=== PATIENT | male | born 1985 | race Caucasian/White ===

== ENCOUNTER 2023-09-04 22:01 | Emergency (ER) | payer BC, SELFPAY ==
[2023-09-04 22:05] VITALS: BP 152/102; BP 152/103; PULSE 73; RESP 14; TEMP 36.6; O2SAT 100; BMI 20.1
[2023-09-04] MEDS: Lidocaine 2% /Epi 1:100 (20ml) 20 ML VIAL INFILT (23:36)
[2023-09-04] MEDS: Clindamycin HCl 150 MG Capsule 300 MG PO (23:36)
--- NOTE | 2023-09-05 00:17 | EX.ED.DYSGE1 ---
HPI History of Present Illness Chief Complaint: Dental Informant: patient Narrative Narrative: Patient is a 38-year-old male with no reported significant past medical history. He states over the past few days he has had some pain and swelling noted to the right upper jaw. He states that there is no recent trauma he denies any difficulty breathing or swallowing. He states that today the pain seems to be more constant and has increased. With concern for infection he presents for evaluation. [facility] Medical History (Updated 09/05/23 @ 05:[address] Daryn Mott, ) Collapsed lung Home Medications clindamycin HCl 300 mg capsule 300 mg PO 4X/DAY 10 days #40 caps 09/05/23 [Rx Last Taken Unknown] Allergy/AdvReac Type Severity Reaction Status Date / Time No Known Allergies Allergy Verified 09/04/23 22:02 Family History (Updated 09/04/23 @ 23:05 by Kayleigh Martino) Father Hypertension Mother FH: kidney cancer Social History (Updated 09/04/23 @ 23:05 by Kayleigh Martino) household members: family housing: house Smoking Status: Current every day smoker tobacco type: cigarettes ROS ROS ED Constitutional Constitutional ED: Denies chills or fever(s) Eyes Eyes: Denies change in vision ENT ENT ED: Reports other Details: Positive dental pain ; Denies sore throat Cardiovascular Cardiovascular: Denies chest pain Respiratory/Chest Respiratory/Chest: Denies cough or dyspnea Gastrointestinal Gastrointestinal: Denies abdominal pain, diarrhea, nausea or vomiting Genitourinary Genitourinary ED: Denies dysuria Musculoskeletal Musculoskeletal: Denies myalgias or neck pain Integumentary Denies rash Neurologic Neurologic: Denies headache(s) Hematologic/Lymphatic Hematologic/Lymphatic: Denies easy bleeding or easy bruising EXAM Physical Exam Const Vital Signs: 09/04/23 22:05 09/04/23 22:05 09/04/23 23:06 Temperature 97.9 F Temperature Source Temporal Pulse Rate 73 73 Respiratory Rate 14 14 Respiratory Effort Normal Non-Labored Respiratory Pattern Normal Blood Pressure 152/103 H 152/102 H Blood Pressure Mean 119 118 Pulse Ox 100 100 Oxygen Delivery Method Room Air Room Air 09/05/23 00:24 Temperature 97.9 F Temperature Source Pulse Rate 73 Respiratory Rate 14 Respiratory Effort Respiratory Pattern Blood Pressure 152/102 H Blood Pressure Mean 118 Pulse Ox 100 Oxygen Delivery Method Positive well nourished and well developed General Appearance ED: well developed; Negative for pallor HEENT Reports moist mucous membranes HEENT Narrative: Patient has scattered dental caries with mild soft tissue swelling and erythema to the right upper gingiva most consistent with developing dental infection. There is no obvious dental abscess. No signs of ANUG. No brawny edema in the submental space to suggest Adolfo's angina. Eyes PERRL and EOMs intact bilaterally Neck supple Resp normal respiratory effort and clear to auscultation bilaterally Cardio regular rate and regular rhythm Rate: other Other Details: Heart is regular rate and rhythm without murmurs rubs or gallops GI normal to inspection, nondistended, normoactive bowel sounds, non-tender, non-distended and no masses Auscultation: normoactive bowel sounds Palpation: soft Extremity normal to inspection Neuro oriented x3, CN's II-XII intact bilaterally and no sensory deficits noted Sensorium / Orientation: alert Motor Exam: strength 5/5 throughout Psych mental status grossly normal Skin no rashes or lesions noted, no wounds and skin turgor normal General Skin Exam: Negative for jaundice or pallor MDM MDM MDM Narrative Medical decision making narrative: Patient presented to the ER hypertensive but otherwise with stable vitals. He reported increasing pain and swelling to the right upper jaw with no known injury. Differential diagnosis is for dental caries versus dental abscess versus Adolfo's angina versus ANUG. Patient does not have any physical exam findings to suggest ANUG and there is no brawny edema to suggest Adolfo's angina. Also there is no obvious abscess externally on exam going against need for incision and drainage. Therefore at this time his pain can be reduced with a dental block as documented below but as there is concern for developing underlying dental infection based on the asymmetric erythema to the gingiva on the right as well as mild soft tissue swelling he will be started on antibiotics. Without signs of systemic infection or endorgan damage there is no need for further evaluation he is otherwise safe for discharge Patient was given a right superior alveolar dental block using 1.5 mL of 2% lidocaine with epinephrine and 1.5 mL of 0.5% Marcaine. Patient achieved good anesthesia with the injection and tolerated the procedure well without complication History & Record Review Discussion w/independent historian: Patient Discharge Plan Triage Chief Complaint: Dental Other Complaint: Weakness ED Provider: Daryn Mott Dx/Rx/DC Orders Clinical Impression: Pain, dental, Dental infection, Hypertension Instructions: Dental Abscess, ED Dental Pain Prescriptions: New clindamycin HCl 300 mg capsule 300 mg PO 4X/DAY 10 Days Qty: 40 0RF Primary Care Provider: GABY BAEZA Referrals: GABY BAEZA [Other] Disposition Disposition: Home, Self Care Discharge Date/Time: 09/05/23 00:45
[2023-09-05 00:24] VITALS: BP 152/102; PULSE 73; RESP 14; TEMP 36.6; O2SAT 100
== END 2023-09-05 00:45 | disposition home or self-care (01) ==
PROVIDERS: Emergency Provider Emergency Medicine; Visit Provider Emergency Medicine
DX: K04.7 Periapical abscess without sinus (principal); I10 Essential (primary) hypertension; F17.210 Nicotine dependence, cigarettes, uncomplicated
CPT/HCPCS: 64999; 99283